=== PATIENT | female | born 1940 | race Caucasian/White ===

== ENCOUNTER 2022-06-30 11:40 | Inpatient (IN) | payer MEDICARE, OTHER ==
[2022-06-30] MEDS: oxyCODONE 5 MG Tab PO PRN ×2 (15:51→22:03)
[2022-06-30] MEDS: Acetaminophen 500 MG Tab PO SCH (17:44)
[2022-06-30] MEDS: Cholecalciferol (Vitamin D3) 25 MCG Tab PO SCH (17:44)
[2022-06-30] MEDS: Enoxaparin 40 MG/0.4 ML Syringe SUBCUT SCH (17:45)
[2022-06-30] MEDS: Warfarin 2.5 MG Tab PO SCH (17:45)
[2022-06-30] MEDS ORDERED: Vitamin E (dl-alpha-tocopherol acetate) 400 Unit Cap PO SCH (18:00)
[2022-06-30] MEDS: atorvaSTATin 20 MG Tab PO SCH (19:34)
[2022-07-01] MEDS: oxyCODONE 5 MG Tab PO PRN ×4 (02:40→22:49)
[2022-07-01] MEDS: Polyethylene Glycol 3350 Powder 17 GM Packet PO SCH (08:18)
[2022-07-01] MEDS: Pantoprazole 40 MG Tab.CR PO SCH (08:18)
[2022-07-01] MEDS: Potassium Chloride 20 MEQ Tab.ER PO SCH (08:20)
[2022-07-01] MEDS: Cholecalciferol (Vitamin D3) 25 MCG Tab PO SCH ×2 (08:21→17:18)
[2022-07-01] MEDS: Acetaminophen 500 MG Tab PO SCH ×2 (08:21→17:17)
[2022-07-01] MEDS: Furosemide 20 MG Tab PO SCH (08:22)
[2022-07-01] MEDS: Metoprolol Succinate 25 MG Tab.ER PO SCH (08:28)
[2022-07-01] MEDS: Enoxaparin 40 MG/0.4 ML Syringe SUBCUT SCH ×2 (08:43→17:20)
[2022-07-01] MEDS: Ondansetron 4 MG Tab.DIS PO PRN ×2 (14:06→19:37)
[2022-07-01] MEDS: Nystatin Topical Powder 15 GM Bottle TOP PRN ×2 (14:06→19:37)
[2022-07-01] MEDS: Warfarin 2.5 MG Tab PO SCH (17:19)
[2022-07-01] MEDS: atorvaSTATin 20 MG Tab PO SCH (19:38)
[2022-07-02] MEDS: Furosemide 20 MG Tab PO SCH (07:30)
[2022-07-02] MEDS: Cholecalciferol (Vitamin D3) 25 MCG Tab PO SCH ×2 (07:30→17:28)
[2022-07-02] MEDS: Metoprolol Succinate 25 MG Tab.ER PO SCH (07:30)
[2022-07-02] MEDS: Polyethylene Glycol 3350 Powder 17 GM Packet PO SCH (07:31)
[2022-07-02] MEDS: oxyCODONE 5 MG Tab PO PRN ×3 (07:31→23:11)
[2022-07-02] MEDS: Acetaminophen 500 MG Tab PO SCH ×2 (07:31→17:28)
[2022-07-02] MEDS: Enoxaparin 40 MG/0.4 ML Syringe SUBCUT SCH ×2 (07:31→17:28)
[2022-07-02] MEDS: Potassium Chloride 20 MEQ Tab.ER PO SCH (07:31)
[2022-07-02] MEDS: Pantoprazole 40 MG Tab.CR PO SCH (07:31)
[2022-07-02] MEDS: Warfarin 2.5 MG Tab PO SCH (17:28)
[2022-07-02] MEDS: atorvaSTATin 20 MG Tab PO SCH (19:55)
[2022-07-02] MEDS: Ondansetron 4 MG Tab.DIS PO PRN (19:57)
[2022-07-03] MEDS: oxyCODONE 5 MG Tab PO PRN ×3 (04:06→20:02)
[2022-07-03] MEDS: Furosemide 20 MG Tab PO SCH (07:22)
[2022-07-03] MEDS: Polyethylene Glycol 3350 Powder 17 GM Packet PO SCH (07:22)
[2022-07-03] MEDS: Enoxaparin 40 MG/0.4 ML Syringe SUBCUT SCH (07:22)
[2022-07-03] MEDS: Potassium Chloride 20 MEQ Tab.ER PO SCH (07:22)
[2022-07-03] MEDS: Pantoprazole 40 MG Tab.CR PO SCH (07:23)
[2022-07-03] MEDS: Acetaminophen 500 MG Tab PO SCH ×2 (07:23→17:43)
[2022-07-03] MEDS: Cholecalciferol (Vitamin D3) 25 MCG Tab PO SCH ×2 (07:24→17:43)
[2022-07-03] MEDS: Metoprolol Succinate 25 MG Tab.ER PO SCH (07:24)
[2022-07-03 08:14] LABS: ANION GAP 12.8 meq/L (7-15)
[2022-07-03] MEDS: Warfarin 2.5 MG Tab PO SCH (17:44)
[2022-07-03] MEDS: atorvaSTATin 20 MG Tab PO SCH (20:02)
[2022-07-03] MEDS: Ondansetron 4 MG Tab.DIS PO PRN (20:04)
[2022-07-04] MEDS: oxyCODONE 5 MG Tab PO PRN ×2 (02:37→22:03)
[2022-07-04] MEDS: Metoprolol Succinate 25 MG Tab.ER PO SCH (08:34)
[2022-07-04] MEDS: Cholecalciferol (Vitamin D3) 25 MCG Tab PO SCH ×2 (08:35→18:06)
[2022-07-04] MEDS: Pantoprazole 40 MG Tab.CR PO SCH (08:35)
[2022-07-04] MEDS: Acetaminophen 500 MG Tab PO SCH ×2 (08:35→18:05)
[2022-07-04] MEDS: Furosemide 20 MG Tab PO SCH (08:35)
[2022-07-04] MEDS: Potassium Chloride 20 MEQ Tab.ER PO SCH (08:35)
[2022-07-04] MEDS: Polyethylene Glycol 3350 Powder 17 GM Packet PO SCH (08:37)
[2022-07-04] MEDS: Warfarin 2.5 MG Tab PO SCH (18:06)
[2022-07-04] MEDS: atorvaSTATin 20 MG Tab PO SCH (19:36)
[2022-07-05] MEDS: oxyCODONE 5 MG Tab PO PRN ×3 (06:14→23:52)
[2022-07-05] MEDS: Metoprolol Succinate 25 MG Tab.ER PO SCH (08:28)
[2022-07-05] MEDS: Cholecalciferol (Vitamin D3) 25 MCG Tab PO SCH ×2 (08:29→17:58)
[2022-07-05] MEDS: Polyethylene Glycol 3350 Powder 17 GM Packet PO SCH (08:29)
[2022-07-05] MEDS: Acetaminophen 500 MG Tab PO SCH ×2 (08:29→17:58)
[2022-07-05] MEDS: Potassium Chloride 20 MEQ Tab.ER PO SCH (08:30)
[2022-07-05] MEDS: Pantoprazole 40 MG Tab.CR PO SCH (08:30)
[2022-07-05] MEDS: Furosemide 20 MG Tab PO SCH (08:30)
[2022-07-05] MEDS: Warfarin 2.5 MG Tab PO SCH (17:58)
[2022-07-05] MEDS: atorvaSTATin 20 MG Tab PO SCH (21:04)
[2022-07-06] MEDS: Acetaminophen 500 MG Tab PO SCH ×2 (07:28→17:17)
[2022-07-06] MEDS: Metoprolol Succinate 25 MG Tab.ER PO SCH (07:29)
[2022-07-06] MEDS: Cholecalciferol (Vitamin D3) 25 MCG Tab PO SCH ×2 (07:30→17:18)
[2022-07-06] MEDS: Pantoprazole 40 MG Tab.CR PO SCH (07:30)
[2022-07-06] MEDS: Furosemide 20 MG Tab PO SCH (07:31)
[2022-07-06] MEDS: Potassium Chloride 20 MEQ Tab.ER PO SCH (07:31)
[2022-07-06] MEDS: Polyethylene Glycol 3350 Powder 17 GM Packet PO SCH (07:32)
[2022-07-06] MEDS: oxyCODONE 5 MG Tab PO PRN ×2 (12:07→21:31)
[2022-07-06] MEDS: Warfarin 5 MG Tab PO SCH (17:17)
[2022-07-06] MEDS: atorvaSTATin 20 MG Tab PO SCH (19:21)
[2022-07-07] MEDS: oxyCODONE 5 MG Tab PO PRN ×3 (06:30→19:44)
[2022-07-07] MEDS: Polyethylene Glycol 3350 Powder 17 GM Packet PO SCH (07:45)
[2022-07-07] MEDS: Furosemide 20 MG Tab PO SCH (07:52)
[2022-07-07] MEDS: Cholecalciferol (Vitamin D3) 25 MCG Tab PO SCH ×2 (07:52→17:48)
[2022-07-07] MEDS: Pantoprazole 40 MG Tab.CR PO SCH (07:52)
[2022-07-07] MEDS: Potassium Chloride 20 MEQ Tab.ER PO SCH (07:52)
[2022-07-07] MEDS: Acetaminophen 500 MG Tab PO SCH ×2 (07:59→17:48)
[2022-07-07] MEDS: Metoprolol Succinate 25 MG Tab.ER PO SCH (08:00)
[2022-07-07] MEDS: Warfarin 2.5 MG Tab PO SCH (17:48)
[2022-07-07] MEDS: atorvaSTATin 20 MG Tab PO SCH (19:44)
[2022-07-08] MEDS: oxyCODONE 5 MG Tab PO PRN ×2 (00:19→19:57)
[2022-07-08] MEDS: Pantoprazole 40 MG Tab.CR PO SCH (08:42)
[2022-07-08] MEDS: Cholecalciferol (Vitamin D3) 25 MCG Tab PO SCH ×2 (08:42→17:43)
[2022-07-08] MEDS: Potassium Chloride 20 MEQ Tab.ER PO SCH (08:43)
[2022-07-08] MEDS: Furosemide 20 MG Tab PO SCH (08:43)
[2022-07-08] MEDS: Metoprolol Succinate 25 MG Tab.ER PO SCH (08:43)
[2022-07-08] MEDS: Polyethylene Glycol 3350 Powder 17 GM Packet PO SCH (08:44)
[2022-07-08] MEDS: Acetaminophen 500 MG Tab PO SCH ×2 (08:44→17:43)
[2022-07-08] MEDS: Warfarin 2.5 MG Tab PO SCH (17:43)
[2022-07-08] MEDS: atorvaSTATin 20 MG Tab PO SCH (19:54)
[2022-07-09] MEDS: oxyCODONE 5 MG Tab PO PRN ×2 (00:16→13:35)
[2022-07-09] MEDS: Acetaminophen 500 MG Tab PO SCH ×2 (07:40→17:38)
[2022-07-09] MEDS: Furosemide 20 MG Tab PO SCH (07:40)
[2022-07-09] MEDS: Pantoprazole 40 MG Tab.CR PO SCH (07:40)
[2022-07-09] MEDS: Potassium Chloride 20 MEQ Tab.ER PO SCH (07:40)
[2022-07-09] MEDS: Cholecalciferol (Vitamin D3) 25 MCG Tab PO SCH ×2 (07:40→17:38)
[2022-07-09] MEDS: Metoprolol Succinate 25 MG Tab.ER PO SCH (07:41)
[2022-07-09] MEDS: Polyethylene Glycol 3350 Powder 17 GM Packet PO SCH (07:43)
[2022-07-09] MEDS: Warfarin 2.5 MG Tab PO SCH (17:39)
[2022-07-09] MEDS: atorvaSTATin 20 MG Tab PO SCH (19:24)
[2022-07-10] MEDS: oxyCODONE 5 MG Tab PO PRN ×3 (01:05→23:21)
[2022-07-10] MEDS: Acetaminophen 500 MG Tab PO SCH ×2 (08:20→17:42)
[2022-07-10] MEDS: Metoprolol Succinate 25 MG Tab.ER PO SCH (08:21)
[2022-07-10] MEDS: Potassium Chloride 20 MEQ Tab.ER PO SCH (08:22)
[2022-07-10] MEDS: Pantoprazole 40 MG Tab.CR PO SCH (08:22)
[2022-07-10] MEDS: Furosemide 20 MG Tab PO SCH (08:22)
[2022-07-10] MEDS: Polyethylene Glycol 3350 Powder 17 GM Packet PO SCH (08:22)
[2022-07-10] MEDS: Cholecalciferol (Vitamin D3) 25 MCG Tab PO SCH ×2 (08:23→17:42)
[2022-07-10] MEDS: Warfarin 2.5 MG Tab PO SCH (17:42)
[2022-07-10] MEDS: atorvaSTATin 20 MG Tab PO SCH (20:31)
[2022-07-11] MEDS: Pantoprazole 40 MG Tab.CR PO SCH (07:49)
[2022-07-11] MEDS: Furosemide 20 MG Tab PO SCH (07:49)
[2022-07-11] MEDS: Acetaminophen 500 MG Tab PO SCH ×2 (07:50→17:21)
[2022-07-11] MEDS: Cholecalciferol (Vitamin D3) 25 MCG Tab PO SCH ×2 (07:50→17:21)
[2022-07-11] MEDS: Metoprolol Succinate 25 MG Tab.ER PO SCH (07:50)
[2022-07-11] MEDS: Potassium Chloride 20 MEQ Tab.ER PO SCH (07:50)
[2022-07-11] MEDS: Nystatin Topical Powder 15 GM Bottle TOP PRN ×2 (07:51→19:49)
[2022-07-11] MEDS: Polyethylene Glycol 3350 Powder 17 GM Packet PO SCH (08:54)
[2022-07-11] MEDS: oxyCODONE 5 MG Tab PO PRN ×2 (16:18→23:08)
[2022-07-11] MEDS: Warfarin 2.5 MG Tab PO SCH (17:21)
[2022-07-11] MEDS: atorvaSTATin 20 MG Tab PO SCH (19:46)
[2022-07-12] MEDS: oxyCODONE 5 MG Tab PO PRN ×2 (05:29→15:09)
[2022-07-12] MEDS: Potassium Chloride 20 MEQ Tab.ER PO SCH (07:48)
[2022-07-12] MEDS: Cholecalciferol (Vitamin D3) 25 MCG Tab PO SCH ×2 (07:49→17:20)
[2022-07-12] MEDS: Pantoprazole 40 MG Tab.CR PO SCH (07:49)
[2022-07-12] MEDS: Acetaminophen 500 MG Tab PO SCH ×2 (07:49→17:20)
[2022-07-12] MEDS: Furosemide 20 MG Tab PO SCH (07:49)
[2022-07-12] MEDS: Metoprolol Succinate 25 MG Tab.ER PO SCH (07:50)
[2022-07-12] MEDS: Nystatin Topical Powder 15 GM Bottle TOP PRN ×2 (07:52→20:06)
[2022-07-12] MEDS: Polyethylene Glycol 3350 Powder 17 GM Packet PO SCH (08:13)
[2022-07-12] MEDS: Warfarin 2.5 MG Tab PO SCH (17:21)
[2022-07-12] MEDS: atorvaSTATin 20 MG Tab PO SCH (20:05)
[2022-07-13] MEDS: oxyCODONE 5 MG Tab PO PRN ×2 (00:35→16:25)
[2022-07-13] MEDS: Pantoprazole 40 MG Tab.CR PO SCH (07:18)
[2022-07-13] MEDS: Metoprolol Succinate 25 MG Tab.ER PO SCH (07:18)
[2022-07-13] MEDS: Polyethylene Glycol 3350 Powder 17 GM Packet PO SCH (07:19)
[2022-07-13] MEDS: Cholecalciferol (Vitamin D3) 25 MCG Tab PO SCH ×2 (07:19→17:53)
[2022-07-13] MEDS: Potassium Chloride 20 MEQ Tab.ER PO SCH (07:19)
[2022-07-13] MEDS: Acetaminophen 500 MG Tab PO SCH ×2 (07:19→17:53)
[2022-07-13] MEDS: Furosemide 20 MG Tab PO SCH (07:19)
[2022-07-13 07:43] LABS: ANION GAP 6.5 meq/L (7-15)
[2022-07-13] MEDS: Warfarin 5 MG Tab PO SCH (17:53)
[2022-07-13] MEDS: atorvaSTATin 20 MG Tab PO SCH (19:41)
[2022-07-13] MEDS: Nystatin Topical Powder 15 GM Bottle TOP PRN (19:44)
[2022-07-14] MEDS: oxyCODONE 5 MG Tab PO PRN ×3 (00:29→08:00)
[2022-07-14] MEDS: Pantoprazole 40 MG Tab.CR PO SCH (07:55)
[2022-07-14] MEDS: Potassium Chloride 20 MEQ Tab.ER PO SCH (07:55)
[2022-07-14] MEDS: Cholecalciferol (Vitamin D3) 25 MCG Tab PO SCH (07:56)
[2022-07-14] MEDS: Acetaminophen 500 MG Tab PO SCH (07:56)
[2022-07-14] MEDS: Furosemide 20 MG Tab PO SCH (07:56)
[2022-07-14] MEDS: Polyethylene Glycol 3350 Powder 17 GM Packet PO SCH (07:58)
[2022-07-14] MEDS: Metoprolol Succinate 25 MG Tab.ER PO SCH (08:01)
[2022-07-14] MEDS: Nystatin Topical Powder 15 GM Bottle TOP PRN (08:04)
== END 2022-07-14 10:56 | disposition home or self-care (01) | DRG 561 ==
LOC: LL.MS 11:40
PROVIDERS: ADMIT Emergency Medicine; ATTEND Emergency Medicine
DX: Z47.1 Aftercare following joint replacement surgery (principal); Z96.641 Presence of right artificial hip joint; E78.00 Pure hypercholesterolemia, unspecified; G62.9 Polyneuropathy, unspecified; Z86.73 Personal history of transient ischemic attack (TIA), and cerebral infarction without residual deficits; H91.90 Unspecified hearing loss, unspecified ear; H54.7 Unspecified visual loss; I10 Essential (primary) hypertension; K21.9 Gastro-esophageal reflux disease without esophagitis; E78.5 Hyperlipidemia, unspecified; I48.91 Unspecified atrial fibrillation; M19.90 Unspecified osteoarthritis, unspecified site; L30.4 Erythema intertrigo; Z79.899 Other long term (current) drug therapy; Z87.891 Personal history of nicotine dependence; Z79.01 Long term (current) use of anticoagulants; Z91.048 Other nonmedicinal substance allergy status
CPT/HCPCS: 36415; 36416; 80053; 85025; 85610; 97110-GP; 97161-GP; 97165-GO; 97530-GP; 97535-GO; A9270-GY; J1650

== ENCOUNTER 2022-12-19 18:22 | Emergency (ER) | payer MEDICARE, OTHER ==
[2022-12-19] MEDS ORDERED: Sodium Chloride 0.9% 10 ML Syringe FLUSH PRN (18:44)
[2022-12-19] MEDS ORDERED: Ketorolac 30 MG/ML SDV IVPUSH ONE (18:44)
[2022-12-19] MEDS ORDERED: Cyclobenzaprine 10 MG Tab PO ONE (18:45)
[2022-12-19 19:26] LABS: ANION GAP 8.8 meq/L (7-15)
[2022-12-19] MEDS ORDERED: Take Home: Cyclobenzaprine 10 MG Tab, 4 Tab Pack PO ONE (19:37)
== END 2022-12-19 20:50 | disposition home or self-care (01) ==
LOC: LL.ED 18:22
DX: M76.01 Gluteal tendinitis, right hip (principal); E78.00 Pure hypercholesterolemia, unspecified; I10 Essential (primary) hypertension; G45.9 Transient cerebral ischemic attack, unspecified; M62.838 Other muscle spasm; E66.01 Morbid (severe) obesity due to excess calories; Z68.35 Body mass index [BMI] 35.0-35.9, adult; Z79.01 Long term (current) use of anticoagulants; Z91.018 Allergy to other foods
CPT/HCPCS: 36415; 80053; 85025; 85610; 96374; 99283-25; 99284; A9270-GY; J1885; J3490

== ENCOUNTER 2022-12-21 15:26 | Emergency (ER) | payer MEDICARE, OTHER ==
[2022-12-21] MEDS ORDERED: Sodium Chloride 0.9% 10 ML Syringe FLUSH PRN (15:42)
[2022-12-21] MEDS ORDERED: Ketorolac 30 MG/ML SDV IVPUSH ONE (15:43)
[2022-12-21] MEDS ORDERED: Iopamidol 612 MG/ML 100 ML Bottle IVPUSH ONE (15:47)
[2022-12-21] MEDS ORDERED: Take Home: Acetaminophen/HYDROcodone 325-5 MG, 5 Tab Pack PO ONE (17:25)
== END 2022-12-21 18:10 | disposition home or self-care (01) ==
LOC: LL.ED 15:26
DX: S22.089A Unspecified fracture of T11-T12 vertebra, initial encounter for closed fracture (principal); S32.059A Unspecified fracture of fifth lumbar vertebra, initial encounter for closed fracture; S32.039A Unspecified fracture of third lumbar vertebra, initial encounter for closed fracture; S32.019A Unspecified fracture of first lumbar vertebra, initial encounter for closed fracture; E78.00 Pure hypercholesterolemia, unspecified; I10 Essential (primary) hypertension; Z91.018 Allergy to other foods; Z79.899 Other long term (current) drug therapy; Z79.01 Long term (current) use of anticoagulants; Z90.49 Acquired absence of other specified parts of digestive tract; Z87.891 Personal history of nicotine dependence
CPT/HCPCS: 74178; 96374; 99284-25; A9270-GY; J1885; J3490; Q9967

== ENCOUNTER 2022-12-25 08:48 | Inpatient (IN) | payer MEDICARE, OTHER ==
[2022-12-25] MEDS ORDERED: Sodium Chloride 0.9% 10 ML Syringe FLUSH PRN (09:48)
[2022-12-25] MEDS ORDERED: Ondansetron 4 MG Tab.DIS PO PRN (10:00)
[2022-12-25 10:34] LABS: ANION GAP 6.6 meq/L (7-15); CHLORIDE,CL 103 mmol/L (98-107); ESTIMATED GFR 66 mL/min (>=60); SODIUM,NA 141 mmol/L (136-145)
[2022-12-25] MEDS: Acetaminophen 500 MG Tab PO SCH ×2 (11:38→19:49)
[2022-12-25] MEDS: Morphine 2 MG/ML SYRINGE IVPUSH PRN (16:36)
[2022-12-25] MEDS: Cyclobenzaprine 10 MG Tab PO SCH (19:52)
[2022-12-26] MEDS: Morphine 2 MG/ML SYRINGE IVPUSH PRN (01:12)
[2022-12-26] MEDS: Sodium Chloride 0.9% 10 ML Syringe FLUSH PRN (01:13)
[2022-12-26] MEDS: Polyethylene Glycol 3350 Powder 17 GM Packet PO PRN (07:32)
[2022-12-26] MEDS: oxyCODONE 5 MG Tab PO PRN ×2 (07:32→20:52)
[2022-12-26] MEDS: Magnesium Chloride 64 MG Tab.ER PO SCH (07:32)
[2022-12-26] MEDS: Potassium Chloride 20 MEQ Tab.ER PO SCH (07:33)
[2022-12-26] MEDS: Furosemide 20 MG Tab PO SCH (07:33)
[2022-12-26] MEDS: Acetaminophen 500 MG Tab PO SCH ×3 (07:33→17:37)
[2022-12-26] MEDS: Sodium Chloride 0.9% 10 ML Syringe FLUSH SCH ×2 (07:33→17:38)
[2022-12-26] MEDS: Cyclobenzaprine 10 MG Tab PO SCH ×3 (07:33→17:36)
[2022-12-26] MEDS: Pantoprazole 40 MG Tab.CR PO SCH (07:34)
[2022-12-26] MEDS: Metoprolol Succinate 25 MG Tab.ER PO SCH (09:13)
[2022-12-26] MEDS: Warfarin 2.5 MG Tab PO SCH (17:43)
[2022-12-27] MEDS: Morphine 2 MG/ML SYRINGE IVPUSH PRN (06:20)
[2022-12-27] MEDS: Sodium Chloride 0.9% 10 ML Syringe FLUSH PRN (06:21)
[2022-12-27] MEDS: Polyethylene Glycol 3350 Powder 17 GM Packet PO PRN (08:00)
[2022-12-27] MEDS: Nitrofurantoin Monohydrate/Macrocrystalline 100 MG Cap PO SCH ×2 (08:01→17:40)
[2022-12-27] MEDS: Potassium Chloride 20 MEQ Tab.ER PO SCH (08:01)
[2022-12-27] MEDS: Furosemide 20 MG Tab PO SCH (08:01)
[2022-12-27] MEDS: Magnesium Chloride 64 MG Tab.ER PO SCH (08:01)
[2022-12-27] MEDS: Pantoprazole 40 MG Tab.CR PO SCH (08:01)
[2022-12-27] MEDS: Acetaminophen 500 MG Tab PO SCH ×3 (08:01→17:40)
[2022-12-27] MEDS: Metoprolol Succinate 25 MG Tab.ER PO SCH (08:02)
[2022-12-27] MEDS: Cyclobenzaprine 10 MG Tab PO SCH ×3 (08:02→17:40)
[2022-12-27] MEDS: Sodium Chloride 0.9% 10 ML Syringe FLUSH SCH ×2 (08:03→17:41)
[2022-12-27] MEDS: Warfarin 2.5 MG Tab PO SCH (17:40)
[2022-12-27] MEDS: oxyCODONE 5 MG Tab PO PRN (22:52)
[2022-12-28] MEDS: oxyCODONE 5 MG Tab PO PRN (05:42)
[2022-12-28] MEDS: Acetaminophen 500 MG Tab PO SCH ×3 (08:47→18:04)
[2022-12-28] MEDS: Cyclobenzaprine 10 MG Tab PO SCH ×3 (08:48→18:05)
[2022-12-28] MEDS: Nitrofurantoin Monohydrate/Macrocrystalline 100 MG Cap PO SCH (08:48)
[2022-12-28] MEDS: Pantoprazole 40 MG Tab.CR PO SCH (08:48)
[2022-12-28] MEDS: Magnesium Chloride 64 MG Tab.ER PO SCH (08:48)
[2022-12-28] MEDS: Potassium Chloride 20 MEQ Tab.ER PO SCH (08:49)
[2022-12-28] MEDS: Furosemide 20 MG Tab PO SCH (08:49)
[2022-12-28] MEDS: Metoprolol Succinate 25 MG Tab.ER PO SCH (08:49)
[2022-12-28] MEDS: Sodium Chloride 0.9% 10 ML Syringe FLUSH SCH ×2 (08:51→18:05)
[2022-12-28] MEDS: Sulfamethoxazole/Trimethoprim 800-160 MG Tab PO SCH ×2 (12:33→18:04)
[2022-12-28] MEDS ORDERED: Warfarin 5 MG Tab PO SCH (18:00)
[2022-12-29] MEDS: oxyCODONE 5 MG Tab PO PRN ×2 (03:37→08:01)
[2022-12-29] MEDS: Acetaminophen 500 MG Tab PO SCH (07:59)
[2022-12-29] MEDS: Magnesium Chloride 64 MG Tab.ER PO SCH (07:59)
[2022-12-29] MEDS: Sulfamethoxazole/Trimethoprim 800-160 MG Tab PO SCH (07:59)
[2022-12-29] MEDS: Potassium Chloride 20 MEQ Tab.ER PO SCH (08:00)
[2022-12-29] MEDS: Cyclobenzaprine 10 MG Tab PO SCH (08:00)
[2022-12-29] MEDS: Pantoprazole 40 MG Tab.CR PO SCH (08:00)
[2022-12-29] MEDS: Furosemide 20 MG Tab PO SCH (08:00)
[2022-12-29] MEDS: Metoprolol Succinate 25 MG Tab.ER PO SCH (08:08)
[2022-12-29] MEDS: Sodium Chloride 0.9% 10 ML Syringe FLUSH SCH (08:08)
[2022-12-29] MEDS ORDERED: Warfarin 2.5 MG Tab PO SCH (18:00)
== END 2022-12-29 09:55 | DRG 552 ==
LOC: LL.MS 09:30
PROVIDERS: ADMIT Hospitalist; ATTEND Hospitalist
DX: M54.41 Lumbago with sciatica, right side (principal); N30.00 Acute cystitis without hematuria; I48.0 Paroxysmal atrial fibrillation; E78.2 Mixed hyperlipidemia; Z66 Do not resuscitate; E66.01 Morbid (severe) obesity due to excess calories; N18.2 Chronic kidney disease, stage 2 (mild); E87.6 Hypokalemia; H91.90 Unspecified hearing loss, unspecified ear; H54.7 Unspecified visual loss; M62.830 Muscle spasm of back; I49.1 Atrial premature depolarization; E78.00 Pure hypercholesterolemia, unspecified; I12.9 Hypertensive chronic kidney disease with stage 1 through stage 4 chronic kidney disease, or unspecified chronic kidney disease; M19.90 Unspecified osteoarthritis, unspecified site; G89.29 Other chronic pain; M79.18 Myalgia, other site; Z96.649 Presence of unspecified artificial hip joint; M54.9 Dorsalgia, unspecified; E66.9 Obesity, unspecified; G62.9 Polyneuropathy, unspecified; Z98.49 Cataract extraction status, unspecified eye; Z86.73 Personal history of transient ischemic attack (TIA), and cerebral infarction without residual deficits; Z79.01 Long term (current) use of anticoagulants; Z90.49 Acquired absence of other specified parts of digestive tract; Z79.899 Other long term (current) drug therapy; Z68.39 Body mass index [BMI] 39.0-39.9, adult; Z98.890 Other specified postprocedural states; Z87.891 Personal history of nicotine dependence
CPT/HCPCS: 36415; 36416; 80053; 81001; 81003; 83735; 85025; 85610; 86140; 87086; 87088; 87186; 97165-GO; A9270-GY; J2270; J3490; U0002

== ENCOUNTER 2023-07-15 13:50 | Emergency (ER) | payer MEDICARE, OTHER ==
[2023-07-15 15:20] LABS: INFLUENZA A NAA NEGATIVE (NEGATIVE); INFLUENZA B NAA NEGATIVE (NEGATIVE); RESPIRATORY SYNCYTIAL VIR NAA NEGATIVE (NEGATIVE)
[2023-07-15 15:24] LABS: CORONAVIRUS COVID-19 NAA POSITIVE (NEGATIVE)
== END 2023-07-15 15:55 | disposition home or self-care (01) ==
LOC: LL.ED 13:50
DX: U07.1 COVID-19 (principal); I12.9 Hypertensive chronic kidney disease with stage 1 through stage 4 chronic kidney disease, or unspecified chronic kidney disease; N18.2 Chronic kidney disease, stage 2 (mild); E78.00 Pure hypercholesterolemia, unspecified; I48.91 Unspecified atrial fibrillation; M19.90 Unspecified osteoarthritis, unspecified site; E66.9 Obesity, unspecified; Z90.49 Acquired absence of other specified parts of digestive tract; Z79.899 Other long term (current) drug therapy; Z79.01 Long term (current) use of anticoagulants; Z91.018 Allergy to other foods
CPT/HCPCS: 0241U; 99283; 99284

== ENCOUNTER 2024-05-14 11:26 | Emergency (ER) | payer MEDICARE, OTHER | END 2024-05-14 12:40 | disposition home or self-care (01) | LOC: LL.ED 11:26 | DX: M79.672 Pain in left foot (principal); I48.91 Unspecified atrial fibrillation; E78.00 Pure hypercholesterolemia, unspecified; I12.9 Hypertensive chronic kidney disease with stage 1 through stage 4 chronic kidney disease, or unspecified chronic kidney disease; N18.9 Chronic kidney disease, unspecified; Z91.018 Allergy to other foods; Z79.899 Other long term (current) drug therapy; Z79.01 Long term (current) use of anticoagulants | CPT/HCPCS: 73630-LT; 99283 ==

== ENCOUNTER 2024-07-31 09:26 | Emergency (ER) | payer MEDICARE, OTHER ==
[2024-07-31 09:57] LABS: BASOPHILS ABSOLUTE AUTO 0.08 K/uL (0.00-0.20); BASOPHILS PERCENT AUTO 1.1 % (0.0-2.0); EOSINOPHILS ABSOLUTE AUTO 0.52 K/uL (0.00-0.50); EOSINOPHILS PERCENT AUTO 7.1 % (0.0-5.0); HEMATOCRIT 30.1 % (34.0-46.0); HEMOGLOBIN 8.8 g/dL (11.7-15.5); IMMATURE GRAN ABSOLUTE AUTO 0.02 10^3/uL (0.00-0.50); IMMATURE GRAN PERCENT AUTO 0.3 % (0.0-5.0); LYMPHOCYTES ABSOLUTE AUTO 1.96 K/uL (0.50-3.50); LYMPHOCYTES PERCENT AUTO 26.7 % (10.0-50.0); MEAN CORPUSCULAR HEMOGLOBIN 25.1 pg (28.2-33.3); MEAN CORPUSCULAR HGB CONC 29.2 g/dL (31.7-36.0); MEAN CORPUSCULAR VOLUME 85.8 fL (84.0-98.0); MONOCYTES ABSOLUTE AUTO 0.93 K/uL (0.00-1.00); MONOCYTES PERCENT AUTO 12.7 % (2.0-14.0); NEUTROPHILS ABSOLUTE AUTO 3.83 K/uL (1.40-7.00); NEUTROPHILS PERCENT AUTO 52.1 % (45.0-80.0); PLATELET COUNT,PLT 379 K/uL (150-350); RED BLOOD CELL COUNT 3.51 M/uL (3.77-5.09); RED CELL DISTRIBUTION WIDTH 14.5 % (11.2-14.1); WHITE BLOOD CELL COUNT,WBC 7.3 K/uL (4.0-10.2)
[2024-07-31 10:29] LABS: ALANINE AMINOTRANSFERASE,ALT 17 U/L (12-78); ALBUMIN 3.2 g/dL (3.4-5.0); ALKALINE PHOSPHATASE 82 IU/L (46-116); ASPARTATE AMNIOTRANSFERASE,AST 19 U/L (15-37); BILIRUBIN TOTAL 0.5 mg/dL (0.2-1.0); BLOOD UREA NITROGEN,BUN 18 mg/dL (7-18); CALCIUM 8.9 mg/dL (8.5-10.1); CHLORIDE,CL 105 mmol/L (98-107); CREATININE 1.24 mg/dL (0.51-1.17); GLUCOSE RANDOM 149 mg/dL (70-99); MAGNESIUM 2.1 mg/dL (1.8-2.4); POTASSIUM,K 3.7 mmol/L (3.5-5.1); PRO B-TYPE NATRIUR PEPT,BNPPRO 931 pg/mL (0-125); PROTEIN TOTAL,TP 7.1 g/dL (6.4-8.2); SODIUM,NA 144 mmol/L (136-145)
[2024-07-31 10:30] LABS: ESTIMATED GFR 43 mL/min (>=60)
[2024-07-31] MEDS: Furosemide 40 MG/4 ML VIAL IVPUSH ONE (11:43)
[2024-07-31] MEDS: Sodium Chloride 0.9% 10 ML Syringe FLUSH PRN (11:45)
[2024-07-31 13:10] LABS: INR 2.3 (0.9-1.1); PROTHROMBIN TIME 22.3 SEC (9.0-11.1)
[2024-07-31 14:43] LABS: APPEARANCE,URINE SLIGHTLY CLOUDY; BILIRUBIN,URINE NEGATIVE (NEGATIVE); COLOR,URINE YELLOW; GLUCOSE,URINE NEGATIVE (NEGATIVE); KETONES,URINE NEGATIVE (NEGATIVE); LEUKOCYTE ESTERASE,URINE NEGATIVE (NEGATIVE); NITRITE,URINE NEGATIVE (NEGATIVE); OCCULT BLOOD,URINE NEGATIVE (NEGATIVE); PH,URINE 7.5 (5.0-9.0); PROTEIN,URINE NEGATIVE (NEGATIVE); UROBILINOGEN,URINE 0.2 E.U./dL (0.2-1.0)
[2024-07-31 14:44] LABS: BACTERIA,URINE RARE /HPF (NONE TO FEW); EPITHELIAL CELLS,URINE RARE /LPF; RBC,URINE 0-5 /HPF; WBC,URINE 0-5 /HPF
== END 2024-07-31 16:30 ==
LOC: LL.ED 09:26
DX: I13.0 Hypertensive heart and chronic kidney disease with heart failure and stage 1 through stage 4 chronic kidney disease, or unspecified chronic kidney disease (principal); I50.9 Heart failure, unspecified; N18.9 Chronic kidney disease, unspecified; K92.1 Melena; D64.9 Anemia, unspecified; R79.89 Other specified abnormal findings of blood chemistry; I48.91 Unspecified atrial fibrillation; E66.9 Obesity, unspecified; Z86.73 Personal history of transient ischemic attack (TIA), and cerebral infarction without residual deficits; Z90.49 Acquired absence of other specified parts of digestive tract; Z96.649 Presence of unspecified artificial hip joint; Z91.018 Allergy to other foods; Z79.01 Long term (current) use of anticoagulants; Z79.899 Other long term (current) drug therapy
CPT/HCPCS: 36415; 71046; 80053; 81001; 83735; 83880; 84484; 85025; 85610; 87428-QW; 93005; 93010; 96374; 99284; 99285-25; J1940; J3490